=== PATIENT | female | born 1935 | race Caucasian/White ===

== ENCOUNTER 2017-03-08 18:27 | Emergency (ER) | payer MEDICARE, OTHER ==
--- NOTE | 2017-03-08 18:32 | ED.REPORT ---
HPI-Trauma Minor / Fall Date of Service Mar 08, 2017 ED Provider: History of Present Illness: stepping over the rails on a boat and slipped off the boat falling about 12 inches landing on top of 4 by 4 on the dock. left rib pain. Lives in [place]. Takes no medication, no asa, no blood pressure meds. [facility] in [facility]. [facility] did not [facility] head Nursing Notes Stated Complaint: RIB PAIN Nursing Notes Reviewed: Yes Allergies: Coded Allergies: No Known Allergies (Unverified , 03/08/17) General Time Seen by MD: 18:31 Chief Complaint Fall Hx Obtained From: Patient Onset Occurred: 1 - 4 hours ago Caused by: Accidental Location: Chest Severity: Current: Pain level 5 out of 10 Past Medical History Past Medical History Denies: Asthma, Coronary artery disease, Diabetes mellitus, Hypertension Past Surgical History tumor removed on right side of neck benign 98 Smoking History Never Smoker Social History Alcohol Use: Denies alcohol use Drug Use: Denies drug use Other Social History: Occupation lives with 03/08/2017 1 story house in [facility] Ambulatory Status Independent Review of Systems Basic Review of Systems : No dysuria, No frequency Psychiatric: Normal thought content Physical Exam Initial Vital Signs Vital Signs (First) Date Time Temp Pulse Resp B/P Pulse Ox O2 Delivery O2 Flow Rate FiO2 03/08/17 18:47 76 169/73 96 Room Air Initial VS: Reviewed, Vital signs normal Head / Eyes: Atraumatic, Normocephalic, PERRL ENT: Mucous membranes moist, Conjunctiva normal, No scleral icterus Respiratory: Breath sounds normal, Clear to auscultation, No respiratory distress Cardiovascular: Regular rate & rhythm, Heart sounds normal, Intact distal pulses Abdomen / GI: Soft, Non-tender, No guarding, No rebound, No distention Back: No CVA tenderness Lymphatic: No lymphadenopathy Extremities: Vascular intact, Neuro intact, No swelling, No tenderness Skin: Warm, Dry, No cyanosis Neurologic: Alert, Oriented, Nonfocal Psychiatric: Mood/affect normal, Behavior normal, Normal thought content General/Constitutional: Awake, Alert, No acute distress, Well appearing, Well developed, Well hydrated, Well nourished, Cooperative, Not toxic appearing Head / Eyes: Atraumatic, Normocephalic, PERRL, EOMI ENT: Atraumatic, Airway patent, Mucous membranes moist, Pharynx NL Respiratory / Chest: Atraumatic, Breath sounds NL, Breath sounds = bilat, No respiratory distress Chest Wall / Ribs: Positive: Chest tender lower L area of point tenderness, no crepitus palpated, no ecchymosis noted Cardiovascular: Heart rate NL, Regular rhythm, Heart sounds NL, No gallop Abdomen: Atraumatic, Soft, Non-tender, McBurney's non-tender Wrist / Hand: Atraumatic, Inspection NL, Full range of motion, No swelling, No erythema, Non-tender Lower Extremity / Pelvis / MS: Atraumatic, Inspection NL, Full range of motion , No swelling Interpretation & Diagnostics X-Ray Interpretation Xray Interpretation: PROCEDURE: X-RAY LEFT RIBS INCLUDEING PA CHEST, MINUMUM THREE VIEWS ([id number]) INDICATIONS: fall on dock, place bb at greatest pain TECHNIQUE: 3 views of the left ribs were acquired, along with a single view chest. COMPARISON: None. FINDINGS: Surgical changes and devices: None. Bones and chest wall: Cortical irregularity in the posterior aspect of the left ninth rib suspicious for nondisplaced fracture. Scoliosis. No suspicious bony lesions. Overlying soft tissues appear unremarkable. Lungs and pleura: There is left basilar infiltrate or atelectasis. No pleural effusions or pneumothorax. Mediastinum: Mediastinal contours appear normal. Heart size is normal. IMPRESSION: 1. Probable left ninth rib fracture. 2. Left basilar infiltrate or atelectasis. Dictated by: Anna Goldstein M.D. on 03/08/2017 at 19:28 Approved by: Anna Goldstein M.D. on 03/08/2017 at 19:31 Re-Eval/Medical Decision Med Decision/Clinical Course 81 year old alert oriented female presents with after have a fall of about 12 inches from the boat to the dock, landing on a 4 by 4. Did not hit head. Only area of pain is left rib area. X-ray indicates 9th rib fracture. Family will stay in [place] tonight. Will make arrangements with son or friends to pick them up tomorrow to [place] ferry [place] get [place]. No sign of hip fracture or any other injuries. Discharge & Departure Impression: Primary Impression: Rib fracture Encounter type: initial encounter Rib fracture type: single rib Fracture type: closed Laterality: left Qualified Code: S22.32XA - Fracture of one rib, left side, initial encounter for closed fracture Additional Impression: Fall Disposition: Home Patient Instructions: High Fiber Diet (ED), Rib Fracture (ED) Additional Instructions: The x-ray shows that you have a 9th rib fracture. You can splint the area of pain, take a pillow and hold it tight against the area of pain and do deep breathing at least 3 times an hour to prevent pneumonia. Can use ibuprofen 400 mg 3 times a day. Also hydrocodone you can take 1 up to 2 times a day. A prescription is also provided. Increase fiber in your diet. Please follow with primary care. REturn for any increase in pain, shortness of breath or any concerns. Follow with Dr. Morrison in [place] as needed. Referrals: OTHER,PHYSICIAN EDSupervising Provider for APC: Zay Domínguez DO copies to: OTHER,PHYSICIAN Kanwal Mcnally Mar 08, 2017 18:32
[2017-03-08 18:47] VITALS: BP 169/73; PULSE 76; O2SAT 96
--- NOTE | 2017-03-08 19:33 | DRSVH ---
PROCEDURE: X-RAY LEFT RIBS INCLUDEING PA CHEST, MINUMUM THREE VIEWS ([id number]) INDICATIONS: fall on dock, place bb at greatest pain TECHNIQUE: 3 views of the left ribs were acquired, along with a single view chest. COMPARISON: None. FINDINGS: Surgical changes and devices: None. Bones and chest wall: Cortical irregularity in the posterior aspect of the left ninth rib suspicious for nondisplaced fracture. Scoliosis. No suspicious bony lesions. Overlying soft tissues appear unr emarkable. Lungs and pleura: There is left basilar infiltrate or atelectasis. No pleural effusions or pneumotho rax. Mediastinum: Mediastinal contours appear normal. Heart size is normal. IMPRESSION: 1. Probable left ninth rib fracture. 2. Left basilar infiltrate or atelectasis. Dictated by: Anna Goldstein M.D. on 03/08/2017 at 19:28 Approved by: Anna Goldstein M.D. on 03/08/2017 at 19:31
[2017-03-08] MEDS ORDERED: _HYDROcodone/APAP 5-325 mg Tablet PO PRN (20:05)
[2017-03-08 20:58] VITALS: BP 153/75; PULSE 72; O2SAT 97
== END 2017-03-08 20:45 | disposition home or self-care (01) ==
LOC: EDBD 18:27 → SED 18:27
DX: S22.32XA Fracture of one rib, left side, initial encounter for closed fracture (principal); W17.89XA Other fall from one level to another, initial encounter; Y93.89 Activity, other specified; Y92.814 Boat as the place of occurrence of the external cause; Y99.8 Other external cause status